=== PATIENT | male | born 1965 ===

== ENCOUNTER 2018-01-18 16:29 | Outpatient (REF) | payer SELFPAY ==
[2018-01-18 22:07] LABS: Anion Gap 10.6 mmol/L (3-11); BUN 26 mg/dL (7-18); CO2 25.4 mmol/L (21.0-32.0); CREATININE 1.07 mg/dL (0.70-1.30); Calcium 8.7 mg/dL (8.5-10.1); Chloride 105 mmol/L (98-107); Glucose 102 mg/dL (70-100); Potassium 3.4 mmol/L (3.5-5.1); Sodium 141 mmol/L (136-145)
== END 2018-01-18 16:49 ==
LOC: NCHCN 16:29
PROVIDERS: PCP Nurse Practitioner; Visit Provider Nurse Practitioner
DX: I10 Essential (primary) hypertension (principal)
CPT/HCPCS: 80048